=== PATIENT | female | born 1975 | race Caucasian/White ===

== ENCOUNTER → 2016-08-10 | Outpatient (REF) | payer BC, OTHER ==
[2016-08-10 12:29] LABS: MEAN CORPUSCULAR HGB CONC 33.6 g/dl (32.0-36.5); MEAN CORPUSCULAR VOLUME 86.2 fl (80.0-96.0); RED CELL DISTRIBUTION WIDTH 12.9 % (11.5-14.5); WHITE BLOOD COUNT 4.5 K/mm3 (4.0-10.0)
[2016-08-10 12:43] LABS: CHOLESTEROL LEVEL 205 MG/DL (<200); TRIGLYCERIDES LEVEL 133 MG/DL (<150)
== END ==
LOC: M LAB REF 12:11
PROVIDERS: ATTEND Nurse Practitioner Family
DX: E78.5 Hyperlipidemia, unspecified (principal); J45.909 Unspecified asthma, uncomplicated

== ENCOUNTER → 2016-09-28 | Outpatient (REF) ==
[2016-09-28 10:30] LABS: BASO % 0.6 % (0.0-1.0); EOS # 0.2 K/mm3 (0.0-0.50); LARGE UNSTAINED CELL # 0.1 K/mm3 (0.0-0.4); LARGE UNSTAINED CELL % 1.3 % (0.0-4.0); LYMPH # 1.4 K/mm3 (1.5-4.5); LYMPH % 28.9 % (24.0-44.0); MEAN CORPUSCULAR HEMOGLOBIN 28.3 pg (27.0-33.0); MEAN CORPUSCULAR HGB CONC 32.9 g/dl (32.0-36.5); MONO # 0.3 K/mm3 (0.0-0.8); MONO % 5.8 % (0.0-5.0); NEUTROPHILS # 2.6 K/mm3 (1.8-7.7); NEUTROPHILS % 58.4 % (36.0-66.0); PLATELET COUNT, AUTOMATED 269 k/mm3 (150-450); RED CELL DISTRIBUTION WIDTH 12.6 % (11.5-14.5); WHITE BLOOD COUNT 4.5 K/mm3 (4.0-10.0)
[2016-09-28 11:15] LABS: ALBUMIN 4.3 GM/DL (3.2-5.2); ALBUMIN/GLOBULIN RATIO 1.39 (1.00-1.93); ALKALINE PHOSPHATASE 31 U/L (45-117); ALT/SGPT 27 U/L (12-78); ANION GAP 12 MEQ/L (8-16); AST/SGOT 15 U/L (15-37); BILIRUBIN,TOTAL 0.8 MG/DL (0.2-1.0); BLOOD UREA NITROGEN 17 MG/DL (7-18); CALCIUM LEVEL 9.5 MG/DL (8.5-10.1); CARBON DIOXIDE LEVEL 27 MEQ/L (21-32); CHLORIDE LEVEL 104 MEQ/L (98-107); CREATININE FOR GFR 0.87 MG/DL (0.55-1.02); GLOMERULAR FILTRATION RATE > 60.0 (>58); GLUCOSE, FASTING 75 MG/DL (70-105); POTASSIUM SERUM 3.8 MEQ/L (3.5-5.1); SODIUM LEVEL 143 MEQ/L (136-145); TOTAL PROTEIN 7.4 GM/DL (6.4-8.2)
== END ==
LOC: M LAB REF 10:06
PROVIDERS: ATTEND Family Medicine
DX: Z02.9 Encounter for administrative examinations, unspecified (principal)

== ENCOUNTER → 2017-02-19 | Outpatient (REF) | payer OTHER | LOC: M LABDRWAD 14:49 | PROVIDERS: ATTEND Nurse Practitioner Family | DX: M25.50 Pain in unspecified joint (principal); E55.9 Vitamin D deficiency, unspecified; J45.909 Unspecified asthma, uncomplicated ==

== ENCOUNTER → 2019-11-18 | Outpatient (CLI) | payer BC, OTHER | LOC: M LABSMTC 12:30 | PROVIDERS: ATTEND Family Medicine | DX: Z20.828 Contact with and (suspected) exposure to other viral communicable diseases (principal) | CPT/HCPCS: C9803; U0002 ==

== ENCOUNTER → 2019-11-18 | Outpatient (CLI) | payer BC, OTHER ==
--- NOTE | 2019-11-19 02:42 | REP ---
Clinical: Cough . Comparison: 10/10/2015 . Technique: PA and lateral. Findings: The mediastinum and cardiac silhouette are normal. The lung bishop are clear and without acute consolidation, effusion, or pneumothorax. Chronic mild scoliosis noted. Impression: 1. No acute cardiopulmonary process. Electronically Signed by Tristan Whitten MD 11/19/2019 02:34 A
== END ==
LOC: M ADAMS 14:15
PROVIDERS: ATTEND Physician Assistant
DX: R05 Cough (principal)

== ENCOUNTER → 2020-06-20 | Outpatient (CLI) | payer SELFPAY | LOC: M LABSMTC 13:18 | PROVIDERS: ATTEND Pediatrics | DX: Z20.828 Contact with and (suspected) exposure to other viral communicable diseases (principal) ==

== ENCOUNTER → 2020-09-12 | Outpatient (REF) | payer OTHER, BC ==
[2020-09-12 14:10] LABS: C REACTIVE PROTEIN QUANTITATIV < 0.30 MG/DL (0.00-0.30)
[2020-09-13 14:09] LABS: ANTINUCLEAR ANTIBODIES DIRECT Negative (Negative); Lyme Disease IgG/IgM Antibodie <0.91 ISR (0.00-0.90); Lyme Disease IgM Ab Quantitati <0.80 index (0.00-0.79)
[2020-09-13 16:45] LABS: RHEUMATOID FACTOR QUANT < 10.0 IU/ML (<15.0)
== END ==
LOC: M LAB REF 12:33
PROVIDERS: ATTEND Registered Nurse
DX: M13.0 Polyarthritis, unspecified (principal)

== ENCOUNTER → 2022-05-22 | Outpatient (CLI) | payer OTHER, BC | LOC: M LABDRWAD 09:45 | PROVIDERS: ATTEND Registered Nurse | DX: E87.6 Hypokalemia (principal) ==

== ENCOUNTER → 2023-04-19 | Outpatient (REF) | LOC: M EMP 14:26 | PROVIDERS: ATTEND Family Medicine | DX: Z11.52 Encounter for screening for COVID-19 (principal) ==

== ENCOUNTER → 2023-08-20 | Outpatient (REF) | payer OTHER, BC ==
[2023-08-20 13:39] LABS: BASO % 0.7 % (0.0-1.0); EOS # 0.3 10^3/uL (0.0-0.5); EOS % 5.8 % (0.0-3.0); HEMATOCRIT 43.7 % (36.0-47.0); HEMOGLOBIN 14.4 g/dl (12.0-15.5); LYMPH # 1.2 10^3/uL (1.5-5.0); LYMPH % 28.5 % (24.0-44.0); MEAN CORPUSCULAR HEMOGLOBIN 29.4 pg (27.0-33.0); MEAN CORPUSCULAR VOLUME 89.2 fl (80.0-96.0); MONO # 0.3 10^3/uL (0.0-0.8); MONO % 6.5 % (2.0-8.0); NEUTROPHILS # 2.5 10^3/uL (1.5-8.5); NEUTROPHILS % 57.3 % (36.0-66.0); PLATELET COUNT, AUTOMATED 221 10^3/uL (150-450); WHITE BLOOD COUNT 4.3 10^3/uL (4.0-10.0)
[2023-08-20 14:08] LABS: ALBUMIN 4.2 G/DL (3.2-5.2); ALKALINE PHOSPHATASE 28 U/L (46-116); ALT/SGPT 37 U/L (7.0-40); AST/SGOT 18 U/L (<34); BILIRUBIN,TOTAL 0.5 MG/DL (0.3-1.2); BLOOD UREA NITROGEN 17 MG/DL (9-23); CALCIUM LEVEL 9.2 MG/DL (8.5-10.1); CARBON DIOXIDE LEVEL 25 MMOL/L (20-31); CHLORIDE LEVEL 108 MMOL/L (98-107); CHOLESTEROL LEVEL 216 MG/DL (<200); CHOLESTEROL RISK RATIO 2.62 (<5); CREATININE FOR GFR 0.76 MG/DL (0.55-1.30); FREE T4 0.97 NG/DL (0.89-1.76); GLOMERULAR FILTRATION RATE > 60.0 (>58); GLUCOSE, FASTING 75 MG/DL (60-100); HDL CHOLESTEROL 82.4 MG/DL (>40); IRON (FE) 100 UG/DL (50-170); LDL CHOLESTEROL 110.8 MG/DL (<100); LUTEINIZING HORMONE 110.7 mIU/ML; NON-HDL-C 133.6 MG/DL; PERCENT SATURATION 31.6 % (13.2-45.0); POTASSIUM SERUM 3.6 MMOL/L (3.5-5.1); SODIUM LEVEL 141 MMOL/L (136-145); THYROID STIMULATING HORMONE 2.347 uIU/ML (0.55-4.78); TOTAL IRON BINDING CAPACITY 316 UG/DL (250-425); TOTAL PROTEIN 6.6 G/DL (5.7-8.2); TRIGLYCERIDES LEVEL 114 MG/DL (<150); VITAMIN B12 LEVEL 516 PG/ML (211-911)
[2023-08-20 14:09] LABS: FERRITIN 19.9 NG/ML (7.3-270.7); FOLLICLE STIMULATING HORMONE 72.7 mIU/ML; TOTAL 25(OH) VITAMIN D 21.8 NG/ML (20.0-100.0)
== END ==
LOC: M LABDRWAD 12:54
PROVIDERS: ATTEND Physician Assistant
DX: N95.1 Menopausal and female climacteric states (principal); R53.83 Other fatigue; Z13.220 Encounter for screening for lipoid disorders; Z13.29 Encounter for screening for other suspected endocrine disorder

== ENCOUNTER → 2023-10-28 | Outpatient (CLI) | payer OTHER, BC | LOC: M WUC 15:35 | PROVIDERS: ATTEND Physician Assistant | DX: S61.502A Unspecified open wound of left wrist, initial encounter (principal); W55.01XA Bitten by cat, initial encounter; Y99.8 Other external cause status; Y92.9 Unspecified place or not applicable; Y93.9 Activity, unspecified ==

== ENCOUNTER 2023-11-13 07:06 | Day surgery (SDC) | payer BC ==
[~2023-11-13] VITALS: Ht 162.6 cm; Wt 57.7 kg
[~2023-11-13 07:06] MED LIST: ADV250INH INH; ALBU8.5H INH; ZYRTTAB8 PO
[2023-11-13] MEDS: ceFAZolin SOD 2 GM in IV 1 EA IV ONE (09:00)
[2023-11-13] MEDS ORDERED: ONDANSETRON 4MG 2ML VIAL As Ordered ONE (09:04)
[2023-11-13] MEDS ORDERED: MIDAZOLAM INJ 2MG/2ML VIAL As Ordered ONE (09:04)
[2023-11-13] MEDS ORDERED: fentaNYL 100 MCG/2 ML INJECTION As Ordered ONE (09:04)
[2023-11-13] MEDS ORDERED: propofoL 200 MG/20 ML VIAL As Ordered ONE (09:04)
[2023-11-13] MEDS ORDERED: LIDOCAINE 2% 100MG/5ML SDV (FOR ANES.) As Ordered ONE (09:04)
[2023-11-13] MEDS ORDERED: KETOROLAC 60MG 2ML VIAL As Ordered ONE (09:04)
[2023-11-13] MEDS: ceFAZolin 2 GM/D5W 50 ML IV BAG As Ordered ONE (09:14)
[2023-11-13] MEDS: BACITRACIN OINTMENT 30GM TUBE As Ordered ONE (10:13)
[2023-11-13] MEDS ORDERED: ONDANSETRON 4MG 2ML VIAL IV PRN (10:30)
[2023-11-13] MEDS ORDERED: METOCLOPRAMIDE INJ 10MG/2ML VIAL IV PRN (10:30)
[2023-11-13] MEDS ORDERED: LR 1,000 ML IV SCH (10:30)
[2023-11-13] MEDS ORDERED: PERCOCET PO (10:38)
[2023-11-13] MEDS: fentaNYL 100 MCG/2 ML INJECTION IV PRN (11:05)
[2023-11-13] MEDS: oxyCODONE 5MG TAB PO PRN (11:06)
[2023-11-13 11:35] VITALS: BP 117/78; TEMP 98.2; O2SAT 100
== END 2023-11-13 12:00 | disposition home or self-care (01) ==
LOC: M SDC 07:06
PROVIDERS: ATTEND Orthopaedic Surgery Hand Surgery
DX: S66.222A Laceration of extensor muscle, fascia and tendon of left thumb at wrist and hand level, initial encounter (principal); W26.0XXA Contact with knife, initial encounter; Y92.010 Kitchen of single-family (private) house as the place of occurrence of the external cause; Y93.9 Activity, unspecified; Y99.9 Unspecified external cause status; J45.20 Mild intermittent asthma, uncomplicated; J30.2 Other seasonal allergic rhinitis; G47.9 Sleep disorder, unspecified; J30.9 Allergic rhinitis, unspecified; Z88.2 Allergy status to sulfonamides; Z91.040 Latex allergy status; Z79.51 Long term (current) use of inhaled steroids; Z79.899 Other long term (current) drug therapy
CPT/HCPCS: 26418; 81025; J0665; J0690; J1100; J1885; J2250; J2405; J3010

== ENCOUNTER → 2025-05-28 | Outpatient (REF) | payer BC ==
[~2025-05-28] MED LIST changes: -ADV250INH INH; +ADVA1AER9 INH; +PERCOCET PO
[2025-05-28 17:44] LABS: PLATELET COUNT, AUTOMATED 256 10^3/uL (150-450)
== END ==
LOC: M SFHCADAM 13:02
PROVIDERS: ATTEND Family Medicine
DX: R53.83 Other fatigue (principal)